=== PATIENT | male | born 1990 | race Caucasian/White ===

== ENCOUNTER → 2016-12-04 | Emergency (ER) | payer SELFPAY ==
[~2016-12-04] MED LIST: ACETAMINOPHEN 325 MG TABLET (FP) ONE; ACETAMINOPHEN 500 MG TABLET (FP) PO ONE; FAMOTIDINE 20 MG/50 ML IVPB 50 ML IVPB ONE; LEVOFLOXACIN 500 MG TABLET (FP) ONE; LEVOFLOXACIN 500 MG TABLET (FP) PO ONE; MAG HYDROX/AL HYDROX/SIMETH 30 ML UNIT-DOSE CUP ONE; MAG HYDROX/AL HYDROX/SIMETH 30 ML UNIT-DOSE CUP PO ONE; METOCLOPRAMIDE HCL INJECTION 10 MG/2 ML VIAL IVPB ONE; METOCLOPRAMIDE HCL INJECTION 10 MG/2 ML VIAL ONE; metroNIDAZOLE 250 MG TABLET ONE; metroNIDAZOLE 500 MG TABLET PO ONE
[2016-12-04 07:40] VITALS: BP 108/68; PULSE 71; TEMP 98.8; BMI 24.3
--- NOTE | 2016-12-04 08:24 | PDOC ---
History of Present Illness - General History Source: Patient Exam Limitations: No Limitations - History of Present Illness Initial Comments: 12/04/16 12:17 "The patient is a 25 year old male, with no significant past medical history, who presents to the emergency department complaining of diffuse abdominal pain beginning Thursday at 2 am. The patient states the abdominal pain began approx. five hours after eating. The patient describes the diffuse abdominal pain as intermittent with two minutes of lower abdominal cramping and ten minutes of relief. The patient rates the abdominal pain 9/10 in severity when he experiences the abdominal cramping. His cramps tend to be worse prior to a BM. Initially had 3-4 episodes of nonbloody watery diarrhea but has not had a bowel movement since last night. Also reports nausea but no vomiting as well as a subjective fever last night. He reports decreased appetite. He tried Advil twice yesterday for his cramps with no relief. When he continued to have the cramping today he came to the emergency department for further evaluation. No sick contacts at home and no recent travel. He denies any chills, headache or dizziness. He denies black tarry stools. He denies any recent chest pain or shortness of breath. He denies any recent dysuria, frequency, urgency or hematuria. Allergies: NKA Past surgical history: None reported. Social History: Nonsmoker. Denies EtOH use and recreational drug use. " <Vidal Delcid - Last Filed: 12/04/16 12:19> <Obinna Liang - Last Filed: 12/04/16 16:48> - General Chief Complaint: Pain Stated Complaint: STOMACH PAIN Time Seen by Provider: 12/04/16 08:09 Past History <Vidal Delcid - Last Filed: 12/04/16 12:19> - Past Medical History Other medical history: NONE - Psycho/Social/Smoking Cessation Hx Anxiety: No Suicidal Ideation: No Smoking History: Never smoked Have you smoked in the past 12 months: No Information on smoking cessation initiated: No Hx Alcohol Use: No Drug/Substance Use Hx: No Substance Use Type: None <Obinna Liang - Last Filed: 12/04/16 16:48> - Past Medical History Allergies/Adverse Reactions: Allergies Allergy/AdvReac Type Severity Reaction Status Date / Time No Known Allergies Allergy Verified 12/04/16 07:37 Home Medications: Ambulatory Orders NK [No Known Home Medication] 12/04/16 Review of Systems - Review of Systems Comments:: 12/04/16 12:19 " GENERAL/CONSTITUTIONAL: No fever or chills. No weakness. HEAD, EYES, EARS, NOSE AND THROAT: No change in vision. No ear pain or discharge. No sore throat. CARDIOVASCULAR: No chest pain or shortness of breath. RESPIRATORY: No cough, wheezing, or hemoptysis. GASTROINTESTINAL: +Nausea. +Diarrhea.+abdominal cramping, no vomiting. GENITOURINARY: No dysuria, frequency, or change in urination. MUSCULOSKELETAL: No joint or muscle swelling or pain. No neck or back pain. SKIN: No rash NEUROLOGIC: No headache, vertigo, loss of consciousness, or change in strength/ sensation. ENDOCRINE: No increased thirst. No abnormal weight change. HEMATOLOGIC/LYMPHATIC: No anemia, easy bleeding, or history of blood clots. ALLERGIC/IMMUNOLOGIC: No hives or skin allergy. " <Vidal Delcid - Last Filed: 12/04/16 12:19> *Physical Exam - Vital Signs Last Vital Signs Temp Pulse Resp BP Pulse Ox 98.8 F 71 18 108/68 100 12/04/16 07:37 12/04/16 07:37 12/04/16 07:37 12/04/16 07:37 12/04/16 07:37 - Physical Exam Comments: 12/04/16 12:19 " GENERAL: Awake, alert, and fully oriented. HEAD: No signs of trauma EYES: PERRLA, EOMI, sclera anicteric, conjunctiva clear ENT: Auricles normal inspection, hearing grossly normal, nares patent, oropharynx clear without exudates. Moist mucosa NECK: Normal ROM, supple, no lymphadenopathy, JVD, or masses LUNGS: Breath sounds equal, clear to auscultation bilaterally. No wheezes, and no crackles HEART: Regular rate and rhythm, normal S1 and S2, no murmurs, rubs or gallops ABDOMEN: +LUQ abdominal tenderness, +LLQ abdominal tenderness, +RLQ abdominal tenderness. +Decreased bowel sounds. -[place] sign. Soft, no guarding, no rebound. No masses EXTREMITIES: Normal range of motion, no edema. No clubbing or cyanosis. No cords, erythema, or tenderness NEUROLOGICAL: Normal speech, cranial nerves intact, negative pronator drift, 5/ 5 strength in all 4 extremities, normal sensation to light touch in all 4 extremities, normal cerebellar exam, normal gait, normal reflexes and tone SKIN: Warm, Dry, normal turgor, no rashes or lesions noted. " <Vidal Delcid - Last Filed: 12/04/16 12:19> - Vital Signs Last Vital Signs Temp Pulse Resp BP Pulse Ox 98.8 F 71 18 108/68 100 12/04/16 07:37 12/04/16 07:37 12/04/16 07:37 12/04/16 07:37 12/04/16 07:37 <Obinna Liang - Last Filed: 12/04/16 16:48> ED Treatment Course - LABORATORY CBC & Chemistry Diagram: 12/04/16 08:40 12/04/16 08:40 - ADDITIONAL ORDERS Additional order review: Laboratory Results 12/04/16 08:40 Sodium 134 L Potassium 3.7 Chloride 100 Carbon Dioxide 26 Anion Gap 8 BUN 12 D Creatinine 1.0 Creat Clearance w eGFR > 60 Random Glucose 91 Calcium 8.5 Magnesium 2.1 Total Bilirubin 0.7 D AST 20 D ALT 22 D Alkaline Phosphatase 72 Total Protein 7.6 Albumin 3.8 12/04/16 08:40 RBC 5.12 MCV 86.1 MCHC 34.2 RDW 13.5 MPV 9.3 Neutrophils % 78.8 Lymphocytes % 9.0 D Monocytes % 11.9 H Eosinophils % 0.0 D Basophils % 0.3 - Medications Given in the ED: ED Medications Discontinued Medications Generic Name Dose Route Start Last Admin Trade Name Feng PRN Reason Stop Dose Admin Al Hydroxide/Mg Hydroxide 30 ml 12/04/16 08:34 12/04/16 08:50 Mylanta Oral Suspension - PO 12/04/16 08:35 30 ml ONCE ONE Administration Famotidine/Sodium Chloride 50 mls @ 100 mls/hr 12/04/16 08:34 12/04/16 08:50 Pepcid 20 Mg Premixed Ivpb - IVPB 12/04/16 09:03 100 mls/hr ONCE ONE Administration Metoclopramide HCl 10 mg 12/04/16 08:34 12/04/16 08:50 Reglan Injection - IVPB 12/04/16 08:35 10 mg ONCE ONE Administration <Vidal Delcid - Last Filed: 12/04/16 12:19> - LABORATORY CBC & Chemistry Diagram: 12/04/16 08:40 12/04/16 08:40 <Obinna Liang - Last Filed: 12/04/16 16:48> Medical Decision Making - Medical Decision Making 12/04/16 10:33 25-year-old male with no significant past medical history presents with abdominal cramping associated with nausea and diarrhea that has now resolved. On exam is tender in the left upper and left lower quadrants. Differential includes colitis versus diverticulitis versus enteritis. -labs -pepcid, reglan, maalox -reassess abd exam, if continues to be tender consider CT 12/04/16 12:36 On reexamination, patient feels better but continues to be tender in the left lower quadrant. CT scan ordered. 12/04/16 16:40 CTAP with extensive colitis. No other acute findings. Patient given 1 dose of Flagyl and Levaquin. We also successfully PO challenged him. We discussed all findings with the patient and answered all of his questions. We plan to discharge patient with close primary care doctor follow-up and strict return precautions. <Obinna Liang - Last Filed: 12/04/16 16:48> *DC/Admit/Observation/Transfer - Attestations Scribe Attestion: 12/04/16 12:20 Documentation prepared by Vidal Delcid, acting as medical billing associate for Obinna Liang MD. <Vidal Delcid - Last Filed: 12/04/16 12:19> - Discharge Dispostion Admit: No - Attestations Physician Attestion: 12/04/16 16:48 I, Dr. Obinna Liang MD, attest that this document has been prepared under my direction and personally reviewed by me in its entirety. I further attest, that it accurately reflects all work, treatment, procedures and medical decision -making performed by me. <Obinna Liang - Last Filed: 12/04/16 16:48> Diagnosis at time of Disposition: Colitis - Discharge Dispostion Disposition: HOME Condition at time of disposition: Stable - Patient Instructions Additional Instructions: Please follow-up with your primary care doctor within 2-3 days. Return to the emergency department immediately if you experience worsening pain, are unable to tolerate food or drink by mouth, chest pain, shortness of breath, fever or any symptom your concerned about.
[2016-12-04 09:43] LABS: BASOPHIL 0.3 % (0-2.0); MCH 29.4 pg (25.7-33.7); MCHC 34.2 g/dl (32.0-35.9); MEAN CELL VOLUME 86.1 fl (80-96); MEAN PLT VOLUME 9.3 fl (7.5-11.1); NEUTROPHILS 78.8 % (42.8-82.8); PLATELET COUNT 252 K/MM3 (134-434); RDW 13.5 % (11.9-15.9); WHITE BLOOD COUNT 10.5 K/mm3 (4.0-10.0)
[2016-12-04 10:13] LABS: ALBUMIN 3.8 g/dl (3.4-5.0); ANION GAP 8 (8-16); CALCIUM 8.5 mg/dL (8.5-10.1); CO2 26 mmol/L (21-32); GLUCOSE,RANDOM 91 mg/dL (74-106); MAGNESIUM 2.1 mg/dL (1.8-2.4); SGOT/AST 20 U/L (15-37); SGPT/ALT 22 U/L (12-78)
[2016-12-04 10:15] LABS: ALK PHOS 72 U/L (45-117); BILIRUBIN,TOTAL 0.7 mg/dL (0.2-1.0); TOT PROT 7.6 g/dl (6.4-8.2)
== END ==
LOC: JER 07:36
CPT/HCPCS: 36415; 74177-TC; 80053; 83690; 83735; 85025; 99282-25; Q9967